=== PATIENT | male | born 1980 | race African-American/Black ===

== ENCOUNTER 2024-05-13 18:48 | Emergency (ER) | payer OTHER ==
[~2024-05-13] VITALS: Ht 170.2 cm; Wt 63.6 kg
[2024-05-13] MEDS: dexAMETHasone 20MG/5ML VIAL IV ONE (20:34)
[2024-05-13 20:42] LABS: BASO % 0.5 % (0.0-1.0); EOS # 0.1 10^3/uL (0.0-0.5); EOS % 1.6 % (0.0-3.0); HEMATOCRIT 41.5 % (42.0-52.0); HEMOGLOBIN 14.5 g/dl (13.5-17.5); LYMPH # 2.9 10^3/uL (1.5-5.0); MEAN CORPUSCULAR HEMOGLOBIN 29.6 pg (27.0-33.0); MEAN CORPUSCULAR HGB CONC 34.9 g/dl (32.0-36.5); MEAN CORPUSCULAR VOLUME 84.7 fl (80.0-96.0); MONO # 0.7 10^3/uL (0.0-0.8); MONO % 9.5 % (2.0-8.0); NEUTROPHILS # 3.9 10^3/uL (1.5-8.5); PLATELET COUNT, AUTOMATED 214 10^3/uL (150-450); WHITE BLOOD COUNT 7.7 10^3/uL (4.0-10.0)
[2024-05-13 20:55] LABS: INR 1.01; PARTIAL THROMBOPLASTIN TIME 29.2 SECONDS (24.8-34.2); PROTHROMBIN TIME 13.6 SECONDS (12.5-14.5)
[2024-05-13 21:00] LABS: CK-MB VALUE MASS < 1.0 NG/ML (<3.6)
[2024-05-13 21:01] LABS: LIPASE 29 U/L (12-53)
[2024-05-13 21:02] LABS: C REACTIVE PROTEIN QUANTITATIV 1.13 MG/DL (<1.0)
[2024-05-13 21:03] LABS: ALBUMIN 3.7 G/DL (3.2-5.2); ALKALINE PHOSPHATASE 63 U/L (40-129); ALT/SGPT 33 U/L (7.0-40); AST/SGOT 22 U/L (<34); BILIRUBIN,TOTAL 1.5 MG/DL (0.3-1.2); BLOOD UREA NITROGEN 8 MG/DL (9-23); CALCIUM LEVEL 9.2 MG/DL (8.5-10.1); CARBON DIOXIDE LEVEL 29 MMOL/L (20-31); CHLORIDE LEVEL 104 MMOL/L (98-107); CREATININE FOR GFR 0.95 MG/DL (0.70-1.30); GLOMERULAR FILTRATION RATE > 60.0 (>60); GLUCOSE, FASTING 85 MG/DL (60-100); POTASSIUM SERUM 4.3 MMOL/L (3.5-5.1); SODIUM LEVEL 140 MMOL/L (136-145); TOTAL PROTEIN 7.3 G/DL (5.7-8.2)
[2024-05-13 21:04] LABS: THYROID STIMULATING HORMONE 1.382 uIU/ML (0.55-4.78)
[2024-05-13 21:05] LABS: FREE T4 1.02 NG/DL (0.89-1.76)
[2024-05-13 21:06] LABS: CPK CREATINE PHOSPHOKINASE 142 U/L (46-171)
[2024-05-13 21:15] VITALS: TEMP 97.2
[2024-05-13 21:23] LABS: ERYTHROCYTE SEDIMENTATION RATE 10 mm/hr (0-15)
[2024-05-13 22:26] LABS: CK-MB VALUE MASS < 1.0 NG/ML (<3.6)
[2024-05-13 22:28] LABS: CPK CREATINE PHOSPHOKINASE 136 U/L (46-171); MB/CK RELATIVE INDEX 0.73 (< OR =4)
[2024-05-13] MEDS: IBUPROFEN 600MG TAB PO ONE (23:19)
[2024-05-14] MEDS ORDERED: IBUP-1022 PO (00:39)
[2024-05-14 01:15] VITALS: BP 119/60; O2SAT 97
[2024-05-16 10:46] LABS: QuantiFERON-TB Gold Plus NEGATIVE (NEGATIVE)
== END 2024-05-14 01:33 | disposition home or self-care (01) ==
LOC: M ED 18:48
DX: I30.0 Acute nonspecific idiopathic pericarditis (principal); Z88.6 Allergy status to analgesic agent; Z79.1 Long term (current) use of non-steroidal anti-inflammatories (NSAID)
CPT/HCPCS: 71045; 80053; 82550; 82553; 83690; 83880; 84439; 84443; 84484; 85025; 85610; 85652; 85730; 86140; 86480; 93005; 93041; 93306; 94760; 96374; 99285; J1100